=== PATIENT | female | born 2000 | race African-American/Black ===

== ENCOUNTER 2020-12-26 06:37 | Observation (INO) | payer BC, SELFPAY ==
[2020-12-26] MEDS ORDERED: Morphine 4 MG/ML VIAL ONE ×2 (07:07→10:22)
[2020-12-26] MEDS ORDERED: Dexamethasone 10 MG/ML VIAL ONE (07:07)
[2020-12-26] MEDS ORDERED: Acetaminophen 325 MG TAB PO PRN (08:00)
[2020-12-26] MEDS ORDERED: Zolpidem Tartrate 5 MG TAB PO PRN (08:00)
[2020-12-26] MEDS ORDERED: Loperamide HCl 2 MG CAP PO PRN (08:00)
[2020-12-26] MEDS ORDERED: Bisacodyl 10 MG SUPP PR PRN (08:00)
[2020-12-26] MEDS ORDERED: Senokot S 8.6-50 MG TAB PO PRN (08:00)
[2020-12-26] MEDS ORDERED: Ondansetron PF 4 MG/2 ML Vial IVP PRN (08:00)
[2020-12-26] MEDS ORDERED: Ondansetron ODT 4 MG TAB PO PRN (08:00)
[2020-12-26] MEDS ORDERED: Calcium Carbonate 500 MG ChewTAB PO PRN (08:00)
[2020-12-26] MEDS ORDERED: Morphine 2 MG/ML VIAL SLOW IVP PRN (08:02)
[2020-12-26] MEDS ORDERED: Ketorolac Tromethamine 30 MG/ML VIAL IVP PRN (08:02)
[2020-12-26] MEDS ORDERED: Hydrocortisone 1% Cream 30 GM TUBE ONE (10:42)
[2020-12-26] MEDS ORDERED: Chlorhexidine Gluconate 15 ML UDCUP SSP ONE (10:42)
[2020-12-26] MEDS ORDERED: Lidocaine 1% w/Epinephrine 1:100K 20 ML VIAL ONE (10:42)
[2020-12-26] MEDS ORDERED: Bupivacaine 0.25% HCL 30 ML VIAL ONE (10:42)
[2020-12-26] MEDS ORDERED: Lidocaine 2% Jelly 5 ML TUBE ONE (10:51)
[2020-12-26] MEDS ORDERED: Midazolam HCl 2 mg/2 ml Vial ONE (10:51)
[2020-12-26] MEDS ORDERED: Fentanyl 100 MCG/2 ML VIAL ONE (10:51)
[2020-12-26] MEDS ORDERED: AFRIN NASAL MIST 15 ML BOT ONE ×2 (10:51→10:52)
[2020-12-26] MEDS ORDERED: Rocuronium Bromide 10 MG/ML (10ML VIAL) ONE (11:32)
[2020-12-26] MEDS ORDERED: Dexamethasone 20 MG/5 ML VIAL ONE (11:32)
[2020-12-26] MEDS ORDERED: PROPOFOL 200 MG/20 ML VIAL ONE (11:32)
[2020-12-26] MEDS ORDERED: Ondansetron PF 4 MG/2 ML Vial ONE (11:32)
[2020-12-26] MEDS ORDERED: diphenhydrAMINE 50 MG/ML VIAL ONE (11:32)
[2020-12-26] MEDS ORDERED: Ketorolac Tromethamine 30 MG/ML VIAL ONE (11:32)
[2020-12-26] MEDS ORDERED: SUGAMMADEX SODIUM 500 MG/5 ML VIAL ONE (11:59)
[2020-12-26] MEDS ORDERED: Clindamycin/D5W 600 MG in Premix Bag 1 BAG IVPB SCH (12:00)
[2020-12-26] MEDS ORDERED: Morphine Sulfate 2 MG/ML SYRINGE SLOW IVP PRN (12:22)
[2020-12-26] MEDS ORDERED: PACU-Morphine 4MG/ML VIAL SLOW IVP PRN (12:22)
[2020-12-26] MEDS ORDERED: Promethazine HCl 25 MG/ML VIAL SLOW IVP PRN (12:22)
[2020-12-26] MEDS ORDERED: Meperidine HCl/PF 25 MG/ML VIAL SLOW IVP PRN (12:22)
[2020-12-26] MEDS ORDERED: Ondansetron HCl/PF 4 MG/2 ML Vial IVP PRN (12:22)
[2020-12-26] MEDS ORDERED: Promethazine HCl 25 MG/ML VIAL IM PRN (12:22)
[2020-12-26] MEDS ORDERED: HYDROmorphone 2 MG/ML VIAL SLOW IVP PRN (12:22)
[2020-12-26] MEDS: Famotidine 20 MG TAB PO SCH (13:53)
[2020-12-26] MEDS: Sodium Chloride 0.9% 1,000 ML IV SCH ×2 (14:07→16:48)
[2020-12-26] MEDS: Clindamycin/D5W 600 MG in Premix Bag 1 BAG IVPB SCH ×2 (14:53→20:35)
[2020-12-26 15:32] VITALS: BMI 36.6
[2020-12-26] MEDS ORDERED: FLU VACC QS2020-21(6MOS UP)/PF 60 MCG/0.5 ML SYRINGE IM ONE (16:30)
[2020-12-26] MEDS: HYDROcodone/Acetaminophen 5/325 mg Tablet PO PRN (20:40)
[2020-12-27] MEDS: HYDROcodone/Acetaminophen 5/325 mg Tablet PO PRN ×2 (02:56→07:17)
[2020-12-27] MEDS: Clindamycin/D5W 600 MG in Premix Bag 1 BAG IVPB SCH ×2 (02:57→08:36)
[2020-12-27] MEDS: Sodium Chloride 0.9% 1,000 ML IV SCH (03:00)
[2020-12-27 04:04] LABS: #Lymphocytes 1.3 thou/uL (1.20-3.40); #Neutrophils 14.9 thou/uL (1.40-6.50); %Basophils 0.2 % (0.0-1.0); %Lymphocytes 7.4 % (21.0-51.0); %Neutrophils 86.4 % (42.0-75.0); Hemoglobin 12.6 g/dL (12.0-16.0); Mean Corpuscular HGB CONC 32.1 g/dL (32.0-36.0); Mean Corpuscular Hemoglobin 31.6 pg (27.0-31.0); Mean Corpuscular Volume 98.4 fL (78.0-98.0); Mean Platelet Volume 6.7 fL (7.4-10.4); Platelet Count 375 thou/uL (130-400); RBC Distribution Width 12.1 % (11.5-14.5); White Blood Cell (WBC) Count 17.2 thou/uL (4.8-10.8)
[2020-12-27 04:20] LABS: Anion Gap 16 mmol/L (10-20); BUN (Urea Nitrogen) 11 mg/dL (7.0-18.7); Calc. Creatinine Clearance 158 mL/min (70-130); Calcium 8.8 mg/dL (7.8-10.44); Carbon Dioxide 20 mmol/L (22-29); Chloride 108 mmol/L (98-107); Glucose 111 mg/dL (70-105); Potassium 4.1 mmol/L (3.5-5.1); Sodium 140 mmol/L (136-145)
[2020-12-27 08:10] VITALS: TEMP 98.4
[2020-12-27] MEDS: Famotidine 20 MG TAB PO SCH (08:36)
[2020-12-27 12:52] VITALS: BP 118/62
== END 2020-12-27 14:02 | disposition home or self-care (01) ==
LOC: ERS 06:37 → ONC 11:01 → SDC 11:02 → ONC 13:32
PROVIDERS: ADMIT Internal Medicine; ATTEND Family Medicine
PROC: 0CDWXZ0 Extraction of Upper Tooth, Single, External Approach (ICD-10-PCS; principal; 2020-12-27)
PROC: 0C9WXZ0 Drainage of Upper Tooth, External Approach, Single (ICD-10-PCS; 2020-12-27)
DX: K04.7 Periapical abscess without sinus (principal); L03.211 Cellulitis of face; S02.5XXA Fracture of tooth (traumatic), initial encounter for closed fracture; D72.829 Elevated white blood cell count, unspecified
CPT/HCPCS: 36415; 80048; 85025; 87070; 87076; 87205; 96365; 96366; 96374; 96375; 96376; G0378; J1100; J1200; J1885; J2250; J2270; J2405; J2704; J3010; J3490; S0020

== ENCOUNTER 2023-01-15 14:51 | Emergency (ER) | payer BC ==
[2023-01-15] MEDS ORDERED: HYDROcodone/Acetaminophen 10/325 mg Tablet ONE (15:55)
[2023-01-15] MEDS ORDERED: Ibuprofen 800 MG TAB ONE (15:55)
== END 2023-01-15 16:00 | disposition home or self-care (01) ==
LOC: ERS 14:51
DX: K08.89 Other specified disorders of teeth and supporting structures (principal)
CPT/HCPCS: 99282